=== PATIENT | female | born 1995 | race Caucasian/White ===

== ENCOUNTER 2016-09-03 07:17 | Emergency (ER) | payer BC ==
[2016-09-03 07:34] VITALS: BP 128/76
--- NOTE | 2016-09-03 07:44 | UC ---
Skin Complaint HPI - HPI Summary HPI Summary: There is wound under the left shoulder that they are concerned about. they wonder if there is a tick. no pain or discharge. no fevers or chills. - History of Current Complaint Chief Complaint: UCSkin Time Seen by Provider: 09/03/16 07:36 Stated Complaint: TICK Hx Obtained From: Patient, Family/Senior Benefits Manager Hx Last Menstrual Period: 08/31/16 Onset/Duration: Gradual Onset Skin Exposure Onset/Duration: Days Ago Timing: Constant Onset Severity: Mild Current Severity: Mild Location: Discrete Character: Swelling, Redness, Raised Aggravating: Nothing Alleviating: Nothing Associated Signs & Symptoms: Positive: Negative - Allergy/Home Medications Allergies/Adverse Reactions: Allergies Allergy/AdvReac Type Severity Reaction Status Date / Time No Known Allergies Allergy Verified 09/03/16 07:21 Home Medications: Home Medications Amoxicillin/Clavulanate TAB* [Augmentin TAB 500 mg*] 1,000 mg PO BID 09/03/16 [ History Confirmed 09/03/16] Desloratidine (NF) [Clarinex (NF)] 5 mg PO DAILY 09/03/16 [History Confirmed ] Review of Systems All Other Systems Reviewed And Are Negative: Yes PMH/Surg Hx/FS Hx/Imm Hx - Surgical History Surgical History: Yes Surgery Procedure, Year, and Place: facial plastic surgery. T&A - Family History Known Family History: Positive: Other - no related tick illnesses. - Social History Lives: With Family Alcohol Use: Occasionally Substance Use Type: None Smoking Status (MU): Never Smoked Tobacco Physical Exam Triage Information Reviewed: Yes Appearance: Well-Appearing, Well-Nourished, Obese Vital Signs: Initial Vital Signs Temp 97.8 F 09/03/16 07:31 Pulse 87 09/03/16 07:31 Resp 16 09/03/16 07:31 BP 128/76 09/03/16 07:31 Pulse Ox 97 09/03/16 07:31 Vital Signs Reviewed: Yes Eye Exam: Normal ENT Exam: Normal Neck exam: Normal Neck: Positive: Supple, Nontender, No Lymphadenopathy Respiratory Exam: Normal Cardiovascular Exam: Normal Cardiovascular: Positive: RRR Abdominal Exam: Normal Bowel Sounds: Positive: Present Musculoskeletal Exam: Normal Psychological Exam: Normal Skin Exam: Other - left posterior shoulder inflammed comedone/pimple. no tick identified even under magnification. no streaking or tenderness. Course/Dx - Course Course Of Treatment: wound care described in detail to patient and father. they will return for any signs of spreading infection. - Differential Diagnoses - Skin Complaint Differential Diagnoses: Abscess - Diagnoses Provider Diagnoses: folliculitis. Discharge - Discharge Plan Condition: Good Disposition: HOME Patient Education Materials: Folliculitis (ED) Referrals: Torie Dunne MD [Primary Care Provider] - If Needed
== END 2016-09-03 07:40 | disposition home or self-care (01) ==
LOC: UCCORT 07:17
DX: L73.9 Follicular disorder, unspecified (principal); E66.9 Obesity, unspecified
CPT/HCPCS: 99201; G0463

== ENCOUNTER 2018-08-30 13:50 | Emergency (ER) | payer BC ==
[2018-08-30 15:03] VITALS: BP 137/80
--- NOTE | 2018-08-30 15:11 | UC ---
Skin Complaint HPI - HPI Summary HPI Summary: Pt is a 23 year old female who presents to for evaluation to a red spot to her left cheek. she is concerned because she states last time this happened she developed a cellulitis to her face that was impressive. she does state that she has known eczema and she uses oatmeal creams and lotions. she denies any nausea and vomiting. She denies any fever or chills. - History of Current Complaint Chief Complaint: UCSkin Stated Complaint: SKIN CONCERN Hx Obtained From: Patient Hx Last Menstrual Period: 08/17/17 Onset/Duration: Sudden Onset Skin Exposure Onset/Duration: Days Ago Timing: Constant Onset Severity: Mild Current Severity: Mild Pain Intensity: 0 - Allergy/Home Medications Allergies/Adverse Reactions: Allergies Allergy/AdvReac Type Severity Reaction Status Date / Time No Known Allergies Allergy Verified 08/30/18 15:03 Home Medications: Home Medications Ibuprofen TAB* [Motrin TAB* 800 MG] 800 mg PO DAILY 08/30/18 [History Confirmed 08/30/18] PMH/Surg Hx/FS Hx/Imm Hx Previously Healthy: Yes Endocrine History: Other - eczema - Surgical History Surgical History: Yes Surgery Procedure, Year, and Place: facial plastic surgery. T&A. R lower leg faciotomy - Family History Known Family History: Positive: Other - no related tick illnesses. - Social History Alcohol Use: Occasionally Substance Use Type: None Smoking Status (MU): Never Smoked Tobacco Review of Systems All Other Systems Reviewed And Are Negative: No Constitutional: Negative: Fever Skin: Positive: Rash Eyes: Negative: Blurred Vision, Diplopia, Drainage ENT: Negative: Sore Throat, Ear Ache, Sinus Congestion Respiratory: Negative: Shortness Of Breath, Cough Cardiovascular: Negative: Chest Pain Gastrointestinal: Negative: Abdominal Pain Motor: Negative: Negative Neurovascular: Negative: Negative Musculoskeletal: Negative: Edema Neurological: Negative: Headache Psychological: Negative: Anxious Physical Exam Triage Information Reviewed: Yes Appearance: Well-Appearing Vital Signs: Initial Vital Signs Temp 98.1 F 08/30/18 14:57 Pulse 86 08/30/18 14:57 Resp 14 08/30/18 14:57 BP 137/80 08/30/18 14:57 Pulse Ox 99 08/30/18 14:57 Vital Signs Reviewed: Yes Eye Exam: Normal Eyes: Positive: Conjunctiva Clear ENT Exam: Normal ENT: Positive: Hearing grossly normal, Pharynx normal Dental Exam: Normal Neck exam: Normal Neck: Positive: Supple Respiratory Exam: Normal Respiratory: Positive: Chest non-tender, Lungs clear, Normal breath sounds, No respiratory distress, No accessory muscle use Cardiovascular Exam: Normal Cardiovascular: Positive: RRR, No Murmur, Pulses Normal, Brisk Capillary Refill Abdominal Exam: Normal Abdomen Description: Positive: Nontender, Soft Bowel Sounds: Positive: Present Musculoskeletal Exam: Normal Musculoskeletal: Positive: Strength Intact, ROM Intact, No Edema Neurological Exam: Normal Psychological Exam: Normal Skin Exam: Other - small area approx 2x2 cm of erythema. no pore is present. no induration. Course/Dx - Course Course Of Treatment: I discussed with pt that I cannot 100% guarantee that this is an early cellulitis. this may simply be an irritation. I told pt I would send her a prescription to the pharmacy for keflex. if the rash gets worse tomorrow, she can fill and start taking the keflex. I also encouraged her to take benadryl today and use steroid cream to the area. if worse, she is to return to or f/ u with pcp. - Diagnoses Provider Diagnosis: Rash Discharge - Sign-Out/Discharge Documenting (check all that apply): Patient Departure All imaging exams completed and their final reports reviewed: No Studies - Discharge Plan Condition: Stable Disposition: HOME Prescriptions: Cephalexin CAP* [Keflex CAP*] 500 mg PO TID #21 cap Patient Education Materials: Dermatitis (ED) Referrals: Ximena Gan NP [Primary Care Provider] - Additional Instructions: take the benadryl and use the steroid cream as instructed. return if worse or any new symptoms. It is important to follow up with your primary care physician by the end of the week. - Billing Disposition and Condition Condition: STABLE Disposition: Home
== END 2018-08-30 15:18 | disposition home or self-care (01) ==
LOC: UCCORT 13:50
DX: R21 Rash and other nonspecific skin eruption (principal)
CPT/HCPCS: 99212; G0463

== ENCOUNTER 2018-09-19 16:06 | Emergency (ER) | payer BC ==
[2018-09-19 16:17] VITALS: BP 135/85
--- NOTE | 2018-09-19 16:17 | UC ---
Respiratory Complaint HPI - HPI Summary HPI Summary: Patient is 23 year old woman , who present today to the urgent care with sinus pressure and congestion for about 1 week. Also reports some sore throat and productive cough with yellowish sputum. Positive for postnasal drip. Ear fullness on the right side. Having intermittent headaches mainly frontal and worse with bending. No sick contacts . No skin rash. Denies any fever, chills,chest pain or shortness of breath. Denies any abdominal pain , nausea or vomiting , diarrhea or constipation. Patient tried Sudafed without much relief. - History of Current Complaint Stated Complaint: SINUS CONCERN Time Seen by Provider: 09/19/18 16:08 Hx Obtained From: Patient Hx Last Menstrual Period: 09/19/18 ?: No - Allergies/Home Medications Allergies/Adverse Reactions: Allergies Allergy/AdvReac Type Severity Reaction Status Date / Time No Known Allergies Allergy Verified 09/19/18 16:17 Home Medications: Home Medications Pseudoephedrine HCl [Sudafed 12-Hour] 2 tab PO DAILY PRN 09/19/18 [History Confirmed 09/19/18] PMH/Surg Hx/FS Hx/Imm Hx - Additional Past Medical History Additional PMH: Past Medical History : Eczema, sinusitis, seasonal allergies Past Surgical History: facial plastic surgery, T&A, right lower leg fasciotomy Family History : Noncontributory Social History : Weekly alcohol, non smoker, no drug use. 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 Previously Healthy: Yes - Surgical History Surgical History: Yes Surgery Procedure, Year, and Place: facial plastic surgery. T&A. R lower leg faciotomy - Family History Known Family History: Positive: Other - no related tick illnesses. - Social History Alcohol Use: Occasionally Substance Use Type: None Smoking Status (MU): Never Smoked Tobacco Review of Systems All Other Systems Reviewed And Are Negative: Yes Constitutional: Positive: Fatigue. Negative: Fever Skin: Positive: Negative Eyes: Positive: Negative ENT: Positive: Sore Throat, Ear Ache - Right ear fullness, Sinus Congestion, Sinus Pain/Tenderness, Other - PND positive Respiratory: Positive: Cough - Productive of yellowish-green sputum Cardiovascular: Positive: Negative Gastrointestinal: Positive: Negative Genitourinary: Positive: Negative Motor: Positive: Negative Neurovascular: Positive: Negative Musculoskeletal: Positive: Negative Neurological: Positive: Negative Psychological: Positive: Negative Is Patient Immunocompromised?: No Physical Exam - Summary Physical Exam Summary: Physical Exam: Const: Appears well. No signs of apparent distress present. Alert and oriented x 3. Musculo: Walks with a normal gait. Head/Face: Atraumatic, normocephalic on inspection. Eyes: EOMI and PERRLA in both eyes. Conjunctivae clear. No discharge noted ENT: Hearing normal, TM normal appearing bilaterally, non bulging , non erythematous . No tenderness on palpation / manipulation of Tragus. No mastoid tenderness. There is tenderness to palpation on maxillary and frontal sinuses Bilaterally No significant pharyngeal erythema . Postnasal drip/cobblestoning noted in the posterior pharyngeal wall . Uvula is midline. No cervical or submandibular lymphadenopathy noted. Respiratory: Respirations are unlabored. Lungs clear to auscultation bilaterally, no wheezing , rhonchi or rales noted . CVS: Regular rate and Rhythm, S1S2 normal , no murmurs identified. Extremities: Peripheral circulation is grossly normal. Pulses 2+ Abdomen : Soft non tender , nondistended , Bowel sounds present . No guarding , rebound tenderness or rigidity noted. Skin: No lesions or rash located on the upper extremities or on the lower extremities. Neuro: Cranial nerves II to XII intact, motor and sensory intact. DTR Intact bilaterally. Mood is normal. Affect is normal. Triage Information Reviewed: Yes Vital Signs Reviewed: Yes Respiratory Course/Dx - Course Course Of Treatment: During the visit today, we discussed the findings and further plan. I will prescribe the medication to the pharmacy . Patient expressed understanding . - Differential Dx/Diagnosis Provider Diagnosis: Sinusitis Discharge - Sign-Out/Discharge Documenting (check all that apply): Patient Departure All imaging exams completed and their final reports reviewed: No Studies - Discharge Plan Condition: Stable Disposition: HOME Prescriptions: Amoxicillin/Clavulanate TAB* [Augmentin TAB 875*] 875 mg PO BID 14 Days #28 tab Fluticasone NASAL SPRAY 50MCG* [Flonase NASAL SPRAY 50MCG*] 1 spray BOTH NARES DAILY 7 Days #1 btl Loratadine/Pseudoephedrine [Claritin-D 24 Hour Tablet] 1 each PO DAILY 10 Days # 10 tab.er.24h Patient Education Materials: Sinusitis (ED) Referrals: Ximena Gan NP [Primary Care Provider] - If Needed Additional Instructions: Please start taking the medication as prescribed to the pharmacy . Follow up with your primary care doctor in1 week if needed. Patients blood pressure slightly high in Urgent care today( prehypertensive range) , plan follow up with PCP for better control Return to Urgent care / ER if symptoms get worse. - Billing Disposition and Condition Condition: STABLE Disposition: Home
== END 2018-09-19 16:33 | disposition home or self-care (01) ==
LOC: UCCORT 16:06
DX: J01.90 Acute sinusitis, unspecified (principal); J02.9 Acute pharyngitis, unspecified; R05 Cough; L30.9 Dermatitis, unspecified; J30.2 Other seasonal allergic rhinitis
CPT/HCPCS: 99212; G0463